=== PATIENT | female | born 1985 | race Caucasian/White ===

== ENCOUNTER → 2018-01-23 | Outpatient (CLI) | payer OTHER ==
--- NOTE | 2018-01-23 11:02 | RAD ---
Clinical Indication: Screening. Rib fracture. Technique: Bone Densitometry was performed with dual photon absorption of the lumbar spine and proximal right femur. This is a baseline exam. Findings: Lumbar Spine: Bone density is 1.143 g/cm2 for L1-L4. T-Score is -0.3 and Z-score -0.1. Age-matched percentage is 99 %. Right Femur neck: Bone density is 0.880 g/cm2. T-Score is -1.1 and Z-score -0.8. Age-matched percentage is 88 %. Impression: 1. Osteopenia in the right femoral neck. 2. Normal bone marrow density in the lumbar spine. Electronically signed by: Anselmo Quiles MD (01/23/2018 10:59 AM) [facility]
== END | disposition home or self-care (01) ==
LOC: DXRAD 09:43
DX: S22.32XA Fracture of one rib, left side, initial encounter for closed fracture (principal); M85.88 Other specified disorders of bone density and structure, other site; X58.XXXA Exposure to other specified factors, initial encounter; Y93.89 Activity, other specified; Y92.89 Other specified places as the place of occurrence of the external cause; Y99.8 Other external cause status
CPT/HCPCS: 77080

== ENCOUNTER 2018-03-27 15:59 | Emergency (ER) | payer OTHER ==
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
[2018-03-27 16:42] LABS: BACTERIA,URINE FEW /HPF (0-FEW); BILIRUBIN,URINE NEG (NEG); CLARITY,URINE CLEAR; COLOR,URINE YELLOW; GLUCOSE,URINE NEG (NEG); NITRITE,URINE NEG (NEG); RBC,URINE RARE /HPF (0-2); SQUAMOUS EPITHELIAL CELL,UR MOD /LPF; UROBILINOGEN,URINE 1 mg/dL (0.2 mg/dL); WBC,URINE RARE /HPF (0-4)
--- NOTE | 2018-03-27 16:52 | RAD ---
EXAM: Chest and left ribs, 3 views. HISTORY: Pain. COMPARISON: None. FINDINGS: A frontal view the chest and 2 views of the left ribs are obtained. There is no infiltrate, pleural effusion or pneumothorax. The heart is normal in size. No displaced rib fracture is seen. IMPRESSION: No acute pulmonary or osseous finding. Electronically signed by: Veena Kohli MD (03/27/2018 4:49 PM) [place] [id number]
[2018-03-27 18:20] VITALS: BP 122/80
== END 2018-03-27 18:25 | disposition home or self-care (01) ==
LOC: ER 15:59
DX: R07.81 Pleurodynia (principal)
CPT/HCPCS: 71101; 81001; 81025; 99285